=== PATIENT | male | born 1990 | race Caucasian/White ===

== ENCOUNTER 2017-07-20 13:47 | Day surgery (SDC) | payer OTHER ==
[~2017-07-20] VITALS: Ht 185.4 cm; Wt 67.1 kg
[2017-07-20 14:44] VITALS: Ht 185.4 cm; Wt 67.1 kg
[2017-07-20] MEDS ORDERED: MAG355OR21 PO (14:51)
[2017-07-20] MEDS ORDERED: PANT40TA4 PO (14:51)
[2017-07-20] MEDS ORDERED: FENTAnyl 50 MCG/ML VIAL ONE (15:57)
[2017-07-20] MEDS ORDERED: PROPOFOL 40 ML ONE (15:57)
[2017-07-20] MEDS ORDERED: PROPOFOL 20 ML ONE (15:58)
[2017-07-20 16:26] VITALS: BP 156/75; PULSE 106; RESP 11
--- NOTE | 2017-07-20 17:30 | OPPN ---
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 Multiple biopsies obtained Rule out polyp versus neoplasm versus inflammatory Rule out ileitis, unable to fully entered terminal ileum due to angulation and what appears to be stricture Otherwise normal colonic mucosa. Random biopsies obtained to rule out microscopic colitis Small internal hemorrhoids. Plan: Review pathology CT enterography IBD panel . 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 Tourniquet Time none EBL none Transfusion required none Biopsy 1: Ileocecal valve area Biopsy 2: Right colon Biopsy 3: Left colon Grafts/Implants none Tubes/Drains none Complication(s) none Disposition: home Procedure Description After informed consent, with the patient/relatives understanding the procedure, its indications and potential risks and complications, including but not limited to: Allergic reaction, bleeding, perforation, infection, and after all pertinent questions were answered to the patient's satisfaction, the patient/ relatives signed the witnessed informed consent. Following this, premedication was administered slowly IV push under careful cardiovascular and respiratory monitoring with pulse [employer], automatic blood pressure, and monitoring manager. Once the sedative effect was achieved, the patient was placed in the left lateral decubitus position, digital rectal examination was performed. The colonoscope was then introduced and advanced under visual control throughout all segments of the colon including: the rectum, sigmoid, descending colon, splenic flexure, transverse colon, hepatic flexure, ascending colon and finally reaching the cecum which was clearly identified by transillumination, finger indentation and the ileocecal valve. Careful examination of the mucosa of the lower gastrointestinal tract both on insertion as well as withdrawal of the instrument disclosed the following findings: PREPARATION QUALITY: [Adequate], RECTAL EXAM: The anorectal area was visualized examined and digital rectal examination performed with the following findings: No evidence of perirectal disease, no masses. COLONIC MUCOSA: The mucosa of all segments of the colon was carefully examined and showed the following findings: There is significant inflammatory changes with cobblestoning of the mucosa of the ileocecal valve which appears abnormal with a polypoid structure measuring approximately 2.5 cm. Multiple biopsies were obtained. Attempts at entering the ileocecal valve were hampered by what appears to be narrowing and significant angulation. Biopsies were obtained. The remainder of the colonic examined mucosa appears within normal limits. There is no evidence of inflammatory changes, diverticular formation, polyps or other neoplasms, vascular malformation, or any other abnormality. Random biopsies were obtained of the right and left colon. Small internal hemorrhoids are present. The instrument was then withdrawn, the patient tolerated the procedure well and was transferred out of the Endoscopy Suite awake and in good condition to continue recovery under observation. Copies To: CC: JACQUELYN VALDES MD, MORDO MD Jul 20, 2017 17:30
--- NOTE | 2017-07-20 17:35 | OPPN ---
Date/Time of Note Date/Time of Note DATE: 07/20/17 TIME: 17:30 Proc Note GI Procedure Date 07/20/17 Indication: other (Abdominal pain/nausea and vomiting) Pre-procedure Diagnosis Abdominal pain/nausea vomiting Post-procedure Diagnosis Impression: Bilateral inlet patches measure approximately 3 cm. Biopsies were obtained. No significant inflammatory changes. Mild distal esophagitis. Mild gastritis. Rule out H. pylori infection. Biopsies obtained Normal duodenal mucosa. Rule out celiac disease. 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 Tourniquet Time none EBL none Transfusion required none Biopsy 1: Second portion of the duodenum/rule out celiac disease Biopsy 2: Gastric body and antrum/rule out H. pylori infection Biopsy 3: Esophageal inlet patch Grafts/Implants none Tubes/Drains none Complication(s) none Disposition: home Procedure Description Preoperative Diagnosis: After informed consent, with the patient/relatives understanding the procedure, its indications, potential risks and complications, including but not limited to : allergic reaction, bleeding, perforation or infection, and after all pertinent questions were answered to the patients satisfaction, the patient/ relatives signed witnessed informed consent. Following this, premedication was administered slowly IV push under careful cardiovascular and respiratory monitoring with pulse oximetry, automatic blood pressure, and hall monitor. Once the sedative effect was achieved the patient was place in the left lateral decubitus, the panendoscope was introduced and advanced under visual control. Careful examination of the upper gastrointestinal tract, both on insertion as well as withdrawal of the instrument disclosing the following findings: ESOPHAGUS: the mucosa of the entire esophagus was carefully examined and showed the following findings: There are bilateral inlet patches measuring approximately 3 cm, no inflammatory changes are present. Biopsies were obtained. Distal esophagus is erythema and edema of the mucosa at the esophagogastric junction which is mild. Otherwise the mucosa appears within normal limits. There is no evidence of varices, neoplasm, or stricture. No Hiatal Hernia identified. STOMACH: Upon entrance to the stomach air was insufflated, the gastric ramirez distended normally. The mucosa of the fundus, body and antrum of the stomach was carefully examined both head-on and on retroflexion, and showed the following findings: There is mild erythema and edema of the mucosa of the entire stomach. Biopsies were obtained of the body and antrum the stomach to rule out H. pylori infection. Otherwise the mucosa appears within normal limits with no abnormalities. There is no evidence of ulcers or neoplasm. PYLORUS: The pylorus was carefully examined and showed the following findings: the pylorus appears patent and within normal limits, with no evidence of gastric outlet obstruction. DUODENUM: The duodenal mucosa was carefully examined in the duodenal bulb as well as the second portion of the duodenum and showed the following findings: the mucosa appears unremarkable with no evidence of duodenitis, ulcer or neoplasm. Random biopsies were obtained of the second portion of duodenum to rule out celiac disease. Copies To: CC: JACQUELYN VALDES MD, MORDO MD Jul 20, 2017 17:34
[2017-07-20 17:50] VITALS: BP 128/69; RESP 14
== END 2017-07-20 19:16 | disposition home or self-care (01) ==
LOC: GIL 13:47
PROVIDERS: ATTEND Internal Medicine Gastroenterology
DX: R10.9 Unspecified abdominal pain (principal); R19.7 Diarrhea, unspecified; K64.8 Other hemorrhoids; Z87.11 Personal history of peptic ulcer disease; Z83.79 Family history of other diseases of the digestive system; K20.9 Esophagitis, unspecified; K29.70 Gastritis, unspecified, without bleeding
CPT/HCPCS: 43239; 45380; 88305; 88312; 88313; J3010; Z7610